=== PATIENT | male | born 1985 | race Caucasian/White ===

== ENCOUNTER 2020-12-19 12:42 | Emergency (ER) | payer BC ==
[2020-12-19 12:51] VITALS: BP 116/64
--- NOTE | 2020-12-19 15:06 | NUR ---
Patient notified registration that he was leaving to go to [facility]. aware.
[2020-12-19] MEDS ORDERED: NALT50TA PO (23:25)
[2020-12-19] MEDS ORDERED: HYDR-3686 PO (23:25)
[2020-12-19] MEDS ORDERED: GABA-530 PO (23:25)
[2020-12-19] MEDS ORDERED: OLAN7.5T3 PO (23:25)
== END 2020-12-19 15:11 | disposition left against medical advice (07) ==
LOC: ER 12:43
DX: Z00.8 Encounter for other general examination (principal); Z53.21 Procedure and treatment not carried out due to patient leaving prior to being seen by health care provider

== ENCOUNTER 2020-12-19 18:17 | Emergency (ER) | payer BC ==
[~2020-12-19] VITALS: Ht 190.5 cm; Wt 76.8 kg
--- NOTE | 2020-12-19 18:45 | NUR ---
His mother is with him and will not leave him.
[2020-12-19 19:28] LABS: ALANINE AMINOTRANSFERASE 26 U/L (12-78); ALBUMIN 4.5 G/DL (3.4-5.0); ALBUMIN/GLOBULIN RATIO 1.3 (1.1-1.5); ALKALINE PHOSPHATASE 72 IU/L (46-116); ANION GAP 7 (8-16); ASPARTATE AMINO TRANSFERASE 12 U/L (10-37); BILIRUBIN,TOTAL 0.6 MG/DL (0.1-1.0); BLOOD UREA NITROGEN 13 MG/DL (7-18); BUN/CREATININE RATIO 16.3 (5.4-32.0); CALCIUM 8.7 MG/DL (8.5-10.1); CHLORIDE 103 MMOL/L (99-107); ETHANOL < 0.010 GM/DL (0.0-0.010); GLUCOSE 98 MG/DL (70-104); POTASSIUM 3.7 MMOL/L (3.5-5.1); SODIUM 141 MMOL/L (135-145); TOTAL PROTEIN 7.9 G/DL (6.4-8.2); eGFR > 90 ML/MIN
[2020-12-19 19:28] LABS: URINE AMPHETAMINE SCREEN NEGATIVE (Neg); URINE BARBITUATE SCREEN NEGATIVE (Neg); URINE BENZODIAZEPINES SCREEN NEGATIVE (Neg); URINE CANNABINOID SCREEN NEGATIVE (Neg); URINE COCAINE SCREEN NEGATIVE (Neg); URINE METHADONE SCREEN NEGATIVE (Neg); URINE OPIATE SCREEN NEGATIVE (Neg); URINE PHENCYCLIDINE SCREEN NEGATIVE (Neg)
[2020-12-19 19:34] LABS: BASOPHILS % (AUTO) 0.4 % (0-1); EOSINOPHILS % (AUTO) 0.6 % (0-6); HEMATOCRIT 41.9 % (42.0-52.0); HEMOGLOBIN 14.9 g/dl (14.0-17.9); LYMPHOCYTES # (AUTO) 1.5 X10'3 (1.1-4.8); LYMPHOCYTES % (AUTO) 23.3 % (21-51); MEAN CORPUSCULAR HEMOGLOBIN 32.3 PG (27.0-31.0); MEAN CORPUSCULAR HGB CONC 35.6 g/dL (33.0-36.5); MEAN CORPUSCULAR VOLUME 90.7 FL (78-98); MONOCYTES # (AUTO) 0.7 X10'3 (0-0.9); MONOCYTES % (AUTO) 11.2 % (2-12); NEUTROPHILS % (AUTO) 64.5 % (42-75); PLATELET COUNT 279 X10'3 (140-440); RED BLOOD COUNT 4.62 X10'6 (4.70-6.10); RED CELL DISTRIBUTION WIDTH 12.6 % (11.5-14.5); WHITE BLOOD COUNT 6.3 X10'3 (4.5-11.0)
[2020-12-19 19:42] LABS: CLARITY,URINE CLEAR (Clear); COLOR,URINE YELLOW (Yellow); GLUCOSE, URINE NEGATIVE (Neg); KETONES,URINE TRACE mg/dl (Neg); LEUKOCYTE ESTERASE ,URINE NEGATIVE (Neg); NITRITES, URINE NEGATIVE (Neg); OCCULT BLOOD,URINE NEGATIVE (Neg); PROTEIN,URINE 30 mg/dl (Neg); UROBILINOGEN,URINE 0.2 E.U/dL (0.2-1.0)
[2020-12-19 19:51] LABS: UA COLLECTION TYPE VOIDED
[2020-12-19 19:59] LABS: BACTERIA,URINE NONE SEEN /HPF (Neg); RBC,URINE NONE SEEN /HPF (0-2); SQUAMOUS EPITHELIAL CELL,UR NONE SEEN /LPF (FEW); WBC,URINE NONE SEEN /HPF (0-4)
[2020-12-19] MEDS ORDERED: OLANZapine 2.5MG tablet PO ONE (22:00)
--- NOTE | 2020-12-19 22:07 | NUR ---
pt escorted back to overflow bed 22 by this RN with mother accompanying. mother will be taking home pt wallet and phone for safekeeping. mother agrees to leave once pt is settled into room.
[2020-12-19] MEDS ORDERED: LORazepam 1 MG tablet PO STA (22:25)
--- NOTE | 2020-12-19 22:34 | NUR ---
The patient was admitted to bed 22 in the ER after being brought to the ER by his mother from [place]. He and his mother report that they went to the hospital in [place] but was sent here. He has been having significant paranoia and hearing noises. He has not been taking psychiatric medications consistently. He appeared to be irrational and having a panic attack. He was asked if he was suicidal and he replied, "I'm not suicidal but I know it's going to happen...I know I'm going to committ suicide. He is on psychiatric medications but has not been taking them consistently. He was hospitalized in [place] over a year ago and dx with anxiety and depression. He reportedly started having severe mental health symptoms after using cocaine and etoh last week. His tox screen is currently negative.
--- NOTE | 2020-12-19 22:46 | NUR ---
Patient's mother, Arlin,
--- NOTE | 2020-12-19 23:16 | NUR ---
The patient appears to be sleeping
[2020-12-19] MEDS ORDERED: OLAN7.5T3 PO (23:25)
[2020-12-19] MEDS ORDERED: GABA-530 PO (23:25)
[2020-12-19] MEDS ORDERED: NALT50TA PO (23:25)
[2020-12-19] MEDS ORDERED: HYDR-3686 PO (23:25)
--- NOTE | 2020-12-19 23:27 | NUR ---
The patient receives medicatins from [facility] in [place]
[2020-12-19] MEDS ORDERED: hydrOXYzine 25 MG tablet PO PRN (23:50)
--- NOTE | 2020-12-20 01:17 | NUR ---
The patient appears to be sleeping
--- NOTE | 2020-12-20 02:37 | NUR ---
THe patient appears to be sleeping
--- NOTE | 2020-12-20 03:11 | NUR ---
packet sent to [facility]
--- NOTE | 2020-12-20 05:58 | NUR ---
The patient appears to have slept well during the night
[2020-12-20 06:01] VITALS: BP 120/83
[2020-12-20] MEDS ORDERED: OLANZapine 2.5MG tablet PO SCH (08:00)
[2020-12-20] MEDS ORDERED: gabapentin 100mg capsule PO SCH (08:00)
[2020-12-20] MEDS ORDERED: naltrexone 50mg tablet PO SCH (08:00)
== END 2020-12-20 14:36 | disposition home or self-care (01) ==
LOC: ER 18:18
DX: R45.851 Suicidal ideations (principal); E03.9 Hypothyroidism, unspecified; F41.9 Anxiety disorder, unspecified; F32.9 Major depressive disorder, single episode, unspecified; Z79.899 Other long term (current) drug therapy; Z20.822 Contact with and (suspected) exposure to COVID-19
CPT/HCPCS: 36415; 80053; 80305; 80320; 81001; 84439; 84443; 85025; 87635; 99285; C9803; Q0177

== ENCOUNTER 2022-09-19 02:24 | Emergency (ER) | payer BC ==
[~2022-09-19] VITALS: Ht 190.5 cm; Wt 73.0 kg
[~2022-09-19 02:24] MED LIST: GABA-530 PO; HYDR-3686 PO; NALT50TA PO; OLAN7.5T3 PO
[2022-09-19 04:33] LABS: ALANINE AMINOTRANSFERASE 26 U/L (12-78); ALBUMIN 4.6 G/DL (3.4-5.0); ALBUMIN/GLOBULIN RATIO 1.4 (1.1-1.5); ALKALINE PHOSPHATASE 73 IU/L (46-116); ANION GAP 8 (8-16); ASPARTATE AMINO TRANSFERASE 10 U/L (10-37); BILIRUBIN,TOTAL 0.5 MG/DL (0.1-1.0); BLOOD UREA NITROGEN 7 MG/DL (7-18); BUN/CREATININE RATIO 9.6 (10.0-20.0); CHLORIDE 103 MMOL/L (99-107); CREATININE 0.73 MG/DL (0.60-1.10); ETHANOL < 0.010 GM/DL (0.0-0.010); GLUCOSE 121 MG/DL (70-104); POTASSIUM 3.9 MMOL/L (3.5-5.1); SODIUM 139 MMOL/L (135-145); TOTAL CARBON DIOXIDE 28.1 MMOL/L (24-32); TOTAL PROTEIN 7.9 G/DL (6.4-8.2); eGFR > 90 ML/MIN
[2022-09-19 04:47] LABS: URINE AMPHETAMINE SCREEN NEGATIVE (Neg); URINE BARBITUATE SCREEN NEGATIVE (Neg); URINE BENZODIAZEPINES SCREEN NEGATIVE (Neg); URINE CANNABINOID SCREEN POSITIVE (Neg); URINE COCAINE SCREEN NEGATIVE (Neg); URINE METHADONE SCREEN NEGATIVE (Neg); URINE OPIATE SCREEN NEGATIVE (Neg); URINE PHENCYCLIDINE SCREEN NEGATIVE (Neg)
[2022-09-19 05:28] LABS: BASOPHILS % (AUTO) 0.3 % (0-1); EOSINOPHILS # (AUTO) 0.1 X10'3 (0-0.9); EOSINOPHILS % (AUTO) 0.8 % (0-6); HEMOGLOBIN 15.9 g/dl (14.0-17.9); LYMPHOCYTES # (AUTO) 2.4 X10'3 (1.1-4.8); LYMPHOCYTES % (AUTO) 25.8 % (21-51); MEAN CORPUSCULAR HEMOGLOBIN 31.9 PG (27.0-31.0); MEAN PLATELET VOLUME 7.4 FL (7.4-10.4); MONOCYTES % (AUTO) 10.8 % (2-12); NEUTROPHILS # (AUTO) 5.7 X10'3 (1.8-7.7); NEUTROPHILS % (AUTO) 62.3 % (42-75); PLATELET COUNT 341 X10'3 (140-440); RED BLOOD COUNT 4.99 X10'6 (4.70-6.10); RED CELL DISTRIBUTION WIDTH 13.6 % (11.5-14.5); WHITE BLOOD COUNT 9.2 X10'3 (4.5-11.0)
[2022-09-19 05:29] LABS: HEMATOCRIT 45.4 % (42.0-52.0)
[2022-09-19 05:45] LABS: LARGE PLATELETS FEW
[2022-09-19 05:46] LABS: PLATELET ESTIMATE NORMAL; SPHEROCYTES FEW
--- NOTE | 2022-09-19 06:56 | NUR ---
Report received from [facility] pt. here for S/I with no specific plan. His Mom is at bedside, they are from the [place] area. Per Mom pt. hasn't had his medications for sometime as his left [facility]. Pt. has no needs at this time. Is waiting to be seen by [facility].
--- NOTE | 2022-09-19 08:24 | NUR ---
PACKET FAXED TO [facility].
--- NOTE | 2022-09-19 09:12 | NUR ---
Pt lying quietly, ate small amount of breakfast, Mom is still bedside, she reports his appetite has been poor and he has lost #20 lbs recently.
--- NOTE | 2022-09-19 09:38 | NUR ---
Completed suicide assessment and psychosocial assessment. Pt does report plan to OD on medications.
--- NOTE | 2022-09-19 11:05 | NUR ---
Pt lying quietly at this time, no signs of distress, respirations are even and unlabored.
--- NOTE | 2022-09-19 13:12 | NUR ---
Pt lying quietly resting at this time, no signs of distress, respirations are even and unlabored.
--- NOTE | 2022-09-19 14:55 | NUR ---
Pt lying quietly resting, no signs of distress, respirations even and unlabored.
--- NOTE | 2022-09-19 16:21 | NUR ---
Pt continues to rest quietly, no signs of distress, respirations are even and unlabored.
[2022-09-19] MEDS ORDERED: normal saline 1000ml 1,000 ML IV ONE (18:35)
--- NOTE | 2022-09-19 18:54 | NUR ---
Report given on this patient to Nurse Basurto at [facility]. Patient is being considered for admission to their [facility].
--- NOTE | 2022-09-19 19:12 | NUR ---
Patient will be accepted to [facility]. Dr. Rhonda Contreras will be the accepting provider. Transport is pending.
[2022-09-19] MEDS ORDERED: cephalexin 500mg capsule PO SCH (20:00)
[2022-09-19] MEDS ORDERED: traZODone 150mg tablet PO SCH (20:05)
[2022-09-19] MEDS ORDERED: LORazepam 1 MG tablet PO ONE (20:05)
[2022-09-19] MEDS ORDERED: traZODone 50mg tablet PO ONE (20:05)
[2022-09-19] MEDS ORDERED: LORazepam 0.5 MG tablet PO ONE (20:12)
--- NOTE | 2022-09-19 20:28 | NUR ---
Arlin Garrido (Patients mother.)
--- NOTE | 2022-09-19 20:30 | NUR ---
Patient is sleeping quietly on his left side. No distress. Patients mother sits at bedside.
--- NOTE | 2022-09-19 21:10 | NUR ---
Patients mother has departed home. Patient in direct view from nurses station.
--- NOTE | 2022-09-19 22:38 | NUR ---
Patient is sleeping quietly. He self repositions in bed. Ativan was given for anxiety. Patient was cooperative as of this writing. He has remained delusional. He does speek softly when awake. Patient has been medication compliant.
--- NOTE | 2022-09-19 23:34 | NUR ---
Note anthony in [facility] - 09/19/22 at 2335 by GUIDO Patient is sleeping quietly on his left side. No distress. Patients mother sits at bedside.
--- NOTE | 2022-09-20 00:22 | NUR ---
Patient is sleeping on his right side. In direct view from nurses station.
--- NOTE | 2022-09-20 02:17 | NUR ---
Patient is sleeping on his left side. Good color, no distress.
--- NOTE | 2022-09-20 03:55 | NUR ---
Patient sleeping quietly on his left side. Good color, no distress noted.
--- NOTE | 2022-09-20 07:00 | NUR ---
Patient is sleeping quietly on his left side.
--- NOTE | 2022-09-20 08:40 | NUR ---
Patient ate breakfast and then returned to sleep.
--- NOTE | 2022-09-20 10:33 | NUR ---
Patient is sleeping on his left side. He has self repositioned in bed.
--- NOTE | 2022-09-20 12:16 | NUR ---
[facility] office called. This patient will be picked up and transported to [facility] at 0715 hours tomorrow.
--- NOTE | 2022-09-20 14:00 | NUR ---
Patient sleeps calmly.
--- NOTE | 2022-09-20 16:07 | NUR ---
Patients mother is visiting at bedside. Patient is awake, cooperative and calm.
--- NOTE | 2022-09-20 19:00 | NUR ---
The patient is resting on his bed.
--- NOTE | 2022-09-20 20:08 | NUR ---
The patient has been resting quietly on his bed. He spoke with his mother briefly on the phone. He admits to suicidal thoughts and feeling depressed all of his other replies to assessment questions were vague. He is aware that he will be transferred to an acute psychatric facility in the am.
--- NOTE | 2022-09-20 20:53 | NUR ---
The patient appears to be sleeping
--- NOTE | 2022-09-20 23:20 | NUR ---
The patient appears to be sleeping
--- NOTE | 2022-09-21 00:57 | NUR ---
The patient appears to be sleeping
--- NOTE | 2022-09-21 03:27 | NUR ---
The patient appears to be sleeping
[2022-09-21 06:11] VITALS: BP 114/74
--- NOTE | 2022-09-21 07:21 | NUR ---
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 All belongings left with patient. Patient appeared to be closed off and nervouse for transport. Mother here to say goodbye. All paper work given to transportation maintenance supervisor and a cold lunch sent with patient.
== END 2022-09-21 07:10 ==
LOC: ER 02:24
DX: R45.851 Suicidal ideations (principal); Z20.822 Contact with and (suspected) exposure to COVID-19; F32.A Depression, unspecified; F15.20 Other stimulant dependence, uncomplicated; F12.90 Cannabis use, unspecified, uncomplicated
CPT/HCPCS: 36415; 80053; 80305; 80320; 85008; 85025; 87811; 99285

== ENCOUNTER 2023-07-12 14:58 | Emergency (ER) | payer MEDICAID ==
[~2023-07-12] VITALS: Ht 190.5 cm; Wt 77.3 kg
[2023-07-12 15:10] VITALS: BP 128/87; PULSE 108; RESP 18; TEMP 97.8; O2SAT 98
[2023-07-12] MEDS ORDERED: PANT-47 PO (16:05)
== END 2023-07-12 16:08 | disposition home or self-care (01) ==
LOC: ER 14:59
DX: R11.0 Nausea (principal); R63.0 Anorexia; F32.A Depression, unspecified; F12.90 Cannabis use, unspecified, uncomplicated; F15.90 Other stimulant use, unspecified, uncomplicated; Z79.899 Other long term (current) drug therapy
CPT/HCPCS: 87502; 87503; 99283